=== PATIENT | female | born 1980 | race Caucasian/White ===

== ENCOUNTER 2020-02-23 17:45 | Emergency (ER) | payer MEDICARE, OTHER ==
[~2020-02-23] VITALS: Ht 167.6 cm; Wt 68.0 kg
== END 2020-02-23 19:26 | disposition home or self-care (01) ==
LOC: ED 17:45 → EDBD 17:48 → ED 19:26
DX: B34.9 Viral infection, unspecified (principal); Z20.828 Contact with and (suspected) exposure to other viral communicable diseases; F17.200 Nicotine dependence, unspecified, uncomplicated
CPT/HCPCS: 99284; C9803; U0003

== ENCOUNTER 2023-04-15 20:12 | Emergency (ER) | payer MEDICARE, OTHER ==
[~2023-04-15] VITALS: Ht 167.6 cm; Wt 70.8 kg
[2023-04-15] MEDS ORDERED: AMOXICILLIN/CLAVULANATE K 875 MG TAB PO ONE (22:15)
[2023-04-15] MEDS ORDERED: AMOX TR-K CLV1 EAC1 PO (22:59)
[2023-04-15 23:03] VITALS: BP 136/96
== END 2023-04-15 23:00 | disposition home or self-care (01) ==
LOC: ED 20:12
DX: L03.113 Cellulitis of right upper limb (principal); T23.201A Burn of second degree of right hand, unspecified site, initial encounter; F17.200 Nicotine dependence, unspecified, uncomplicated; W36.8XXA Explosion and rupture of other gas cylinder, initial encounter; Z88.5 Allergy status to narcotic agent
CPT/HCPCS: 73130; 99283-25